=== PATIENT | female | born 1990 | race Caucasian/White ===

== ENCOUNTER → 2016-12-19 | Outpatient (CLI) | payer MEDICAID ==
[~2016-12-19] MED LIST: IRON325 MG PO; LEXAPRO 5MG5 MG PO; MOTRIN 600600 MG/TAB PO; NORCO 325 MG-51 TAB PO; PERCOCET 325 MG1 TA2 PO; PRENATAL VITAMI1 TA5 PO; SPRINTEC 35 MCG1 TAB PO
== END ==
LOC: COL.CARD 14:13
DX: R00.0 Tachycardia, unspecified (principal); R00.2 Palpitations

== ENCOUNTER 2017-02-01 23:46 | Emergency (ER) | payer MEDICAID ==
[~2017-02-01] VITALS: Ht 162.6 cm; Wt 75.0 kg
[~2017-02-01 23:46] MED LIST changes: -NORCO 325 MG-51 TAB PO
[2017-02-01 23:49] VITALS: TEMP 98.1
[2017-02-02] MEDS ORDERED: NORCO 325 MG-51 TAB PO (00:25)
[2017-02-02 01:07] VITALS: BP 117/60; PULSE 96
== END 2017-02-02 01:16 | disposition home or self-care (01) ==
LOC: COL.ER 23:46
DX: S92.355A Nondisplaced fracture of fifth metatarsal bone, left foot, initial encounter for closed fracture (principal); Z87.891 Personal history of nicotine dependence; W08.XXXA Fall from other furniture, initial encounter; Y92.009 Unspecified place in unspecified non-institutional (private) residence as the place of occurrence of the external cause
CPT/HCPCS: J2405; J3010

== ENCOUNTER 2017-03-28 09:41 | Outpatient (RCR) | payer MEDICAID ==
[~2017-03-28 09:41] MED LIST changes: +NORCO 325 MG-51 TAB PO
== END 2017-06-26 ==
LOC: MKS.ESL.PT
DX: S93.402D Sprain of unspecified ligament of left ankle, subsequent encounter (principal)

== ENCOUNTER 2017-05-14 10:22 | Emergency (ER) | payer MEDICAID ==
[~2017-05-14] VITALS: Ht 162.6 cm; Wt 78.6 kg
[2017-05-14 10:31] VITALS: BP 136/72; TEMP 98.6
[2017-05-14 11:29] LABS: PH 7 (5-8); URINE APPEARANCE Clear; URINE BACTERIA Rare /hpf; URINE BILIRUBIN Negative (NEGATIVE); URINE BLOOD Negative (NEGATIVE); URINE COLOR Yellow; URINE GLUCOSE Negative (NEGATIVE); URINE KETONE Negative (NEGATIVE); URINE UROBILINOGEN Negative (NEGATIVE); URINE WBC 0-2 /hpf
[2017-05-14 11:29] LABS: BASO % 0.4 % (0.0-2.0); EOS # 0.1 (0.0-0.7); EOS % 1.8 % (0-4.0); GRAN # 4.1 (1.4-6.5); HEMATOCRIT 40.7 % (37.0-47.0); LYMPH % 29.6 % (20.0-51.0); MEAN CELL VOLUME 93 fl (80.0-100.0); MEAN CORPUSCULAR HEMOGLOBIN 30 pg (27.0-31.0); MEAN CORPUSCULAR HGB CONC 32 g/dl (33.0-37.0); MEAN PLATELET VOLUME 11.3 fl (7.4-10.4); MONO # 0.5 (0.1-0.6); MONO % 7.9 % (1.7-9.3); PLATELET COUNT 216 K/mm3 (130-400); RED BLOOD COUNT 4.38 M/mm3 (4.10-5.30); REDCELL DISTRIBUTION WIDTH-CV 13.1 % (11.5-14.5); WHITE BLOOD COUNT 6.8 K/mm3 (4.8-10.8)
[2017-05-14 11:42] LABS: ADJUSTED CALCIUM 9.6 mg/dL (8.4-10.2); ALBUMIN 4.3 gm/dL (3.5-5.0); BILIRUBIN,TOTAL 0.5 mg/dL (0.0-1.0); C-REACTIVE PROTEIN 2.9 mg/dL (0.0-0.9); CALCIUM 9.8 mg/dL (8.4-10.2); CREATININE, serum 0.59 mg/dL (0.52-1.25); POTASSIUM 4.5 mmol/L (3.4-5.0); TOTAL PROTEIN 7.6 gm/dL (6.4-8.2)
[2017-05-14 13:00] VITALS: PULSE 80
== END 2017-05-14 13:03 | disposition home or self-care (01) ==
LOC: COL.ER 10:22
PROVIDERS: Family Medicine
DX: R53.81 Other malaise (principal); R00.2 Palpitations; F43.20 Adjustment disorder, unspecified

== ENCOUNTER 2018-08-07 14:00 | Outpatient (RCR) | payer MEDICAID | END 2018-10-05 10:21 | disposition home or self-care (01) | LOC: WSOT 14:00 | DX: M65.841 Other synovitis and tenosynovitis, right hand (principal) ==

== ENCOUNTER 2019-01-07 09:28 | Emergency (ER) | payer MEDICAID ==
[~2019-01-07] VITALS: Ht 152.4 cm; Wt 50.2 kg
[2019-01-07 09:32] VITALS: BP 122/74; PULSE 74; TEMP 97.4
== END 2019-01-07 10:57 | disposition left against medical advice (07) ==
LOC: COL.ER 09:28
DX: S43.402A Unspecified sprain of left shoulder joint, initial encounter (principal); X50.0XXA Overexertion from strenuous movement or load, initial encounter; Y92.009 Unspecified place in unspecified non-institutional (private) residence as the place of occurrence of the external cause

== ENCOUNTER 2020-03-23 23:07 | Emergency (ER) | payer MEDICAID ==
[~2020-03-23] VITALS: Ht 162.6 cm; Wt 52.7 kg
[2020-03-23 23:24] VITALS: TEMP 99.8
[2020-03-24] MEDS ORDERED: ULTRAM 50MG TAB50 MG PO (01:16)
[2020-03-24] MEDS ORDERED: CRUTCHES MC (01:18)
[2020-03-24 01:52] VITALS: BP 132/70; PULSE 70
== END 2020-03-24 01:41 | disposition home or self-care (01) ==
LOC: COL.ER 23:07
DX: S92.341A Displaced fracture of fourth metatarsal bone, right foot, initial encounter for closed fracture (principal); W22.09XA Striking against other stationary object, initial encounter; Y92.009 Unspecified place in unspecified non-institutional (private) residence as the place of occurrence of the external cause

== ENCOUNTER → 2020-04-06 | Outpatient (CLI) | payer MEDICAID ==
[~2020-04-06] MED LIST changes: +CRUTCHES MC; +ULTRAM 50MG TAB50 MG PO
== END ==
LOC: MC.RAD 07:00
DX: N63.21 Unspecified lump in the left breast, upper outer quadrant (principal)

== ENCOUNTER → 2020-10-07 | Outpatient (CLI) | payer MEDICAID | LOC: MC.RAD 13:00 | DX: N63.20 Unspecified lump in the left breast, unspecified quadrant (principal) ==

== ENCOUNTER 2021-01-11 14:45 | Emergency (ER) | payer MEDICAID ==
[~2021-01-11] VITALS: Ht 162.6 cm; Wt 53.2 kg
[2021-01-11 14:55] VITALS: BP 131/86; TEMP 98.1
[2021-01-11 15:25] VITALS: PULSE 90
== END 2021-01-11 15:24 | disposition home or self-care (01) ==
LOC: COL.ER 14:45
DX: S60.451A Superficial foreign body of left index finger, initial encounter (principal); Z87.891 Personal history of nicotine dependence; Z88.7 Allergy status to serum and vaccine; W45.8XXA Other foreign body or object entering through skin, initial encounter; Y92.017 Garden or yard in single-family (private) house as the place of occurrence of the external cause; Y99.0 Civilian activity done for income or pay

== ENCOUNTER 2022-01-29 07:06 | Inpatient (IN) | payer MEDICAID ==
[~2022-01-29] VITALS: Ht 162.6 cm; Wt 58.9 kg
[2022-01-29] VITALS (9 sets, daily range): BP systolic 122–143; BP diastolic 77–89; PULSE 56–66; TEMP 97.6–98.4
[2022-01-29 07:32] LABS: BASO % 0.4 % (0.0-2.0); EOS # 0.1 K/mm3 (0.0-0.7); EOS % 1.1 % (0.0-4.0); GRAN # 5.2 K/mm3 (1.4-6.5); GRAN % 71.6 % (42.2-75.2); HEMATOCRIT 42.2 % (37.0-47.0); HEMOGLOBIN 14.1 g/dl (12.5-16.0); LYMPH # 1.4 K/mm3 (1.2-3.4); MEAN CELL VOLUME 102 fl (80.0-100.0); MEAN CORPUSCULAR HEMOGLOBIN 34 pg (27-31); MEAN CORPUSCULAR HGB CONC 33 g/dl (33.0-37.0); MEAN PLATELET VOLUME 10.8 fl (7.4-10.4); MONO # 0.6 K/mm3 (0.1-0.6); MONO % 7.6 % (1.7-9.3); PLATELET COUNT 173 K/mm3 (130-400); RED BLOOD COUNT 4.14 M/mm3 (4.10-5.30); REDCELL DISTRIBUTION WIDTH-CV 12.1 % (11.5-14.5)
[2022-01-29 07:54] LABS: ALBUMIN 4.8 gm/dL (3.5-5.0); BILIRUBIN,TOTAL 1.7 mg/dL (0.2-1.2); CALCIUM 9.6 mg/dL (8.4-10.2); CREATININE, serum 0.7 mg/dL (0.57-1.11); POTASSIUM 3.8 mmol/L (3.5-4.5)
--- NOTE | 2022-01-29 09:53 | NUR ---
PT TO FLOOR FROM ER.
[2022-01-29] MEDS ORDERED: MULTI VITAMINS1 TAB PO (10:03)
[2022-01-29 12:38] LABS: COLLECTION METHOD CLEAN CATCH
[2022-01-29 13:02] LABS: MUCOUS Present (NOT PRESENT); PH 5 (5-8); SQUAMOUS EPITHELIAL 0-2 /hpf (0-10); URINE APPEARANCE Clear (CLEAR/HAZY); URINE BACTERIA Rare /hpf (NONE SEEN); URINE BILIRUBIN Negative (NEGATIVE); URINE BLOOD 2+ (NEGATIVE); URINE COLOR Yellow (YELLOW); URINE GLUCOSE Negative (NEGATIVE); URINE KETONE 1+ (NEGATIVE); URINE LEUKOCYTE ESTERASE Negative (NEGATIVE); URINE NITRATE Negative (NEGATIVE); URINE PROTEIN(semi-quant) Negative (NEGATIVE); URINE RBC 0-2 /hpf (0-2); URINE UROBILINOGEN Negative (NEGATIVE)
--- NOTE | 2022-01-29 18:01 | NUR ---
PT SITTING UP IN BED DRAWING. PT ON ROOM AIR. PT STATES THAT HER PAIN IS A 6 "BUT I HAVE NOT PUSHED THE BUTTON IN A WHILE." ADVISED PT TO PUSH THE BUTTON IF SHE IS HAVING INCREASED PAIN. PT VOICES UNDERSTANDING. PT STATES SHE WOULD LIKE TO HAVE SOME ICE CHIPS. ITEMS WERE GIVEN TO PT. PT STATES NO OTHER NEEDS AT THIS TIME. PT RESPIRATIONS ARE WNL. REGASIFICATION PLANT OPERATOR PUMP AT BEDSIDE. PT IS ALERT. CALL LIGHT IS WITHIN REACH.
--- NOTE | 2022-01-29 20:15 | NUR ---
Initial shift assessment done- states abd pain 5/10,,on morphine LIFE CYCLE ASSESSMENT ANALYST 1mg basal rate/hr and 1 mg every 10 minutes on demand. States is effective for pain, States having some nausea- will give Zofran. IV fluids of NS at 150cc/hr to L/FA.
--- NOTE | 2022-01-29 21:00 | NUR ---
States having some itching- will give benadryl as ordered.
[2022-01-30 00:46] VITALS: BP 130/79; PULSE 63; TEMP 98.3
[2022-01-30 04:36] VITALS: BP 126/83; PULSE 81; TEMP 98.3
--- NOTE | 2022-01-30 05:59 | NUR ---
Slept fair during the night- states pain is under better control today-- continues with INCREMENT MANAGER Morphine-VSS, IV fluids of NS at 150cc/hr
[2022-01-30 07:06] LABS: BASO % 0.3 % (0.0-2.0); EOS # 0.2 K/mm3 (0.0-0.7); EOS % 2.6 % (0.0-4.0); GRAN # 5.3 K/mm3 (1.4-6.5); GRAN % 84.6 % (42.2-75.2); HEMATOCRIT 38.7 % (37.0-47.0); HEMOGLOBIN 12.7 g/dl (12.5-16.0); LYMPH # 0.4 K/mm3 (1.2-3.4); LYMPH % 6.1 % (20.0-51.0); MEAN CELL VOLUME 106 fl (80.0-100.0); MEAN CORPUSCULAR HEMOGLOBIN 35 pg (27-31); MEAN CORPUSCULAR HGB CONC 33 g/dl (33.0-37.0); MEAN PLATELET VOLUME 11.7 fl (7.4-10.4); MONO # 0.4 K/mm3 (0.1-0.6); MONO % 6.2 % (1.7-9.3); PLATELET COUNT 125 K/mm3 (130-400); RED BLOOD COUNT 3.66 M/mm3 (4.10-5.30); REDCELL DISTRIBUTION WIDTH-CV 12.1 % (11.5-14.5)
[2022-01-30 07:12] LABS: ALBUMIN 3.9 gm/dL (3.5-5.0); BILIRUBIN,TOTAL 1.9 mg/dL (0.2-1.2); CALCIUM 8.5 mg/dL (8.4-10.2); CREATININE, serum 0.61 mg/dL (0.57-1.11); POTASSIUM 3.7 mmol/L (3.5-4.5); TOTAL PROTEIN 6.3 gm/dL (6.2-8.1)
[2022-01-30 07:15] LABS: INR 1.1 (0.8-3.0); PROTHROMBIN TIME 13.1 SECONDS (9.7-12.8)
[2022-01-30 08:00] VITALS: BP 129/76; PULSE 75
--- NOTE | 2022-01-30 08:10 | NUR ---
PT LAYING SUPINE IN BED ON ROOM AIR. PT STATES THAT HER PAIN IS "THE BEST IT HAS BEEN SINCE SHE IS HAS BEEN HERE." STILL RATING IT "ABOUT A 4" PT STATES THAT SHE IS CONCERNED ABOUT HER BMs. "I HAVE NOT HAD ONE IN A FEW DAYS" I INFORMED PT THAT A STOOL SOFTENER WAS ORDER FOR HER AT BEDTIME AND IT WAS NOT GIVEN TO HER LAST NIGHT BECAUSE SHE WAS VOMITING. BUT IT WILL BE GIVEN TO HER AGAIN TONIGHT AND TO CERTAINLY MENTION IT TO THE DR IF SHE WOULD LIKE TO HAVE SOMETHING ELSE WELL. PT VOICED UNDERSTANDING. PT STATES THAT SHE WOUDL ALSO LIKE SOMETHING TO EAT. I INFORMED HER THAT WOULD BE SOMETHING ELSE THAT WE WOULD TALK TO THE DR ABOUT WHEN THEY CAME IN. PT STATES THAT SHE WOULD LIKE TO HAVE SOEM ICE CHIPS. ICE CHIPS WERE GIVEN PER REQUEST. PT STATES NO OTHER NEEDS/COCNERNS. PRIMARY CARE PROVIDER PUMP IS AT BEDSIDE. NS AT 150ML IS INFUSING. IV SITE IS CLEAN,DRY AND INTACT. CALL LIGHT IS WITHIN REACH.
[2022-01-30 08:28] VITALS: BP 129/76; PULSE 75; TEMP 98.4
[2022-01-30 12:00] VITALS: BP 136/90; PULSE 83; PULSE 86; TEMP 98.1
--- NOTE | 2022-01-30 13:21 | NUR ---
Sw met with the pt to complete intake. Pt is lives at home with common law , Dimitri @ [phone] and they have 4 children together. The pt reports she is independent on all ADLs and does not use any DME. Pt reports no DPOA_HC and is not interested at this time. PCP is Mary Lazo and gets medications from [facility]. No other needs stated at this time. Sw to await further recommendations and follow up as needed. DC: Home
--- NOTE | 2022-01-30 14:45 | NUR ---
FLOOR BROKER PUMP WAS DISCONNECTED. PT STATES THAT HER PAIN IS "MAYBE A 2" PT WAS ABLE TO HOLD DOWN WATER AND JELLO. NO N/V. PT STATES "THIS IS THE BEST THAT I HAVE FELT IN DAYS, I AM READY TO GO HOME." WAS CALLED AND INFORMED AND STATES THE WILL WORK ON DC PAPER WORK. PT VOICES UNDERSTANDING. STATES NO OTHER NEEDS AT THIS TIME. CALL LIGHT IS WITHIN REACH.
== END 2022-01-30 15:40 | disposition home or self-care (01) | DRG 440 ==
LOC: COL.ER 07:06 → MEDICAL 08:53
PROVIDERS: Emergency Medicine; Physician Assistant; ADMIT Internal Medicine
DX: K85.20 Alcohol induced acute pancreatitis without necrosis or infection (principal); F41.9 Anxiety disorder, unspecified; F32.A Depression, unspecified; K76.0 Fatty (change of) liver, not elsewhere classified; F10.10 Alcohol abuse, uncomplicated; Y90.3 Blood alcohol level of 60-79 mg/100 ml; Z87.891 Personal history of nicotine dependence
CPT/HCPCS: 99223-AI; 99239; J1170; J1200; J2270; J2405; J2765; J7030

== ENCOUNTER 2022-11-27 10:35 | Inpatient (IN) | payer MEDICAID ==
[~2022-11-27] VITALS: Ht 162.6 cm; Wt 62.2 kg
[~2022-11-27 10:35] MED LIST changes: +MULTI VITAMINS1 TAB PO
[2022-11-27 11:01] LABS: BASO # 0.1 K/mm3 (0.0-0.2); BASO % 0.6 % (0.0-2.0); EOS # 0.1 K/mm3 (0.0-0.7); EOS % 1.2 % (0.0-4.0); GRAN # 3.9 K/mm3 (1.4-6.5); GRAN % 38.3 % (42.2-75.2); HEMATOCRIT 42.9 % (37.0-47.0); HEMOGLOBIN 14.9 g/dl (12.5-16.0); LYMPH # 4.6 K/mm3 (1.2-3.4); LYMPH % 45.8 % (20.0-51.0); MEAN CELL VOLUME 101 fl (80.0-100.0); MEAN CORPUSCULAR HEMOGLOBIN 35 pg (27-31); MEAN CORPUSCULAR HGB CONC 35 g/dl (33.0-37.0); MEAN PLATELET VOLUME 10.3 fl (7.4-10.4); MONO # 1.4 K/mm3 (0.1-0.6); MONO % 13.6 % (1.7-9.3); PLATELET COUNT 214 K/mm3 (130-400); RED BLOOD COUNT 4.24 M/mm3 (4.10-5.30); REDCELL DISTRIBUTION WIDTH-CV 11.9 % (11.5-14.5)
[2022-11-27 11:29] LABS: ALANINE AMINOTRANSFERASE 166 U/L (0-55); ALBUMIN 4.4 gm/dL (3.5-5.0); ALKALINE PHOSPHATASE 48 U/L (40-150); ANION GAP 17 mmol/L (7-16); AST,SGOT 344 U/L (5-34); BILIRUBIN,TOTAL 0.9 mg/dL (0.2-1.2); BLOOD UREA NITROGEN 9 mg/dL (7-19); CALCIUM 9.8 mg/dL (8.4-10.2); CARBON DIOXIDE 24 mmol/L (22-29); CHLORIDE 99 mmol/L (98-107); CREATININE, serum 0.78 mg/dL (0.57-1.11); GLUCOSE 106 mg/dL (70-99); POTASSIUM 3.5 mmol/L (3.5-4.5); SODIUM 140 mmol/L (136-145); TOTAL PROTEIN 7.8 gm/dL (6.2-8.1)
[2022-11-27 11:58] LABS: LIPASE > 9600 U/L (8-78)
[2022-11-27 13:28] VITALS: BP 140/91; PULSE 71; TEMP 98.4
[2022-11-27] MEDS ORDERED: PREDNISONE 5MG5 MG PO (13:40)
--- NOTE | 2022-11-27 14:38 | NUR ---
PT ADMITTED TO MEDICAL UNIT. ADMISSION INTAKE AND ASSESSMENT COMPLETED. PT ORIENTED TO ROOM, CALL LIGHT WITHIN REACH. MED REC UPDATED. PT REPORTS 10/10 PAIN TO MID ABDOMEN, PRN MEDICATION GIVEN PER eMAR. IVF STARTED. WILL CONTINUE TO MONITOR.
[2022-11-27 14:55] LABS: COLLECTION METHOD CLEAN CATCH
[2022-11-27 15:09] LABS: PH 6.5 (5.0-8.5); URINE APPEARANCE Cloudy (CLEAR/HAZY); URINE BLOOD TRACE-INTACT (NEGATIVE); URINE COLOR Yellow (YELLOW); URINE GLUCOSE Negative (NEGATIVE); URINE KETONE 1+ (NEGATIVE); URINE NITRATE Positive (NEGATIVE); URINE PROTEIN(semi-quant) 1+ (NEGATIVE); URINE UROBILINOGEN 0.2 E.U/dL (0.2-1.0)
[2022-11-27 15:11] LABS: MUCOUS Present (NOT PRESENT); URINE BACTERIA Occasional /hpf (NONE SEEN)
[2022-11-27 15:50] VITALS: BP 142/86; PULSE 67; TEMP 98.1
[2022-11-27 20:04] VITALS: BP 150/89; PULSE 60; TEMP 98.5
--- NOTE | 2022-11-27 21:38 | NUR ---
Patient assesse around 2044. Complained of level 7 pain to abdomen. Given PRN Dilaudid as requeted. Patient complianed of nausea and had approximatly 100 mls of emesis. Called NATHAN Ontiveros, and given PRN Zofran. IV fluids continue per orders. Asked patient is she had ever gone through alcohol detox while in hospital, and stated that last time she was in the hospital she started having hallucinations at 12 hours without a drink. Called NATHAN Ontiveros, and new order received to place on alcohol detox protocol. Patient updated on plan of care, and voiced understanding. Voices no further questions, needs, or concerns at this time. In bed with call light within reach.
[2022-11-27 21:42] LABS: TRICYCLIC ANTIDEPRESS URINE NEGATIVE
[2022-11-27 21:52] LABS: PROTHROMBIN TIME 11.5 SECONDS (9.7-12.8)
[2022-11-27 21:55] LABS: PARTIAL THROMBOPLASTIN TIME 26.5 SECONDS (26.0-37.0)
[2022-11-27 22:19] VITALS: BP 149/84; PULSE 59; TEMP 97.5
--- NOTE | 2022-11-27 22:27 | NUR ---
NATHAN Ontiveros notified of labs, potassium 3.5, Magnesium 1.2. Order to place on potassium protocol, and give 2 grams Magnesium.
[2022-11-28] VITALS (12 sets, daily range): BP systolic 127–159; BP diastolic 75–109; PULSE 67–120; TEMP 97.6–99.4
--- NOTE | 2022-11-28 06:15 | NUR ---
Patient given PRN Dilaudid every two hours during the night as requested for pain to abdomen. Patient was scoring 3 on detox protocol at beginning of shift, and has increased to a 7 this shift and given PRN Ativan per protocol. Patient's HR and BP are elevated, has tremors, and nausea. High fall risk precautions in place, bed alarm on. Call light within reach.
[2022-11-28 06:35] LABS: BASO # 0.1 K/mm3 (0.0-0.2); BASO % 0.7 % (0.0-2.0); GRAN # 13.3 K/mm3 (1.4-6.5); GRAN % 89.4 % (42.2-75.2); HEMATOCRIT 49.6 % (37.0-47.0); LYMPH # 0.4 K/mm3 (1.2-3.4); LYMPH % 2.6 % (20.0-51.0); MEAN CELL VOLUME 100 fl (80.0-100.0); MEAN CORPUSCULAR HEMOGLOBIN 35 pg (27-31); MEAN CORPUSCULAR HGB CONC 35 g/dl (33.0-37.0); MEAN PLATELET VOLUME 10.5 fl (7.4-10.4); PLATELET COUNT 155 K/mm3 (130-400); RED BLOOD COUNT 4.96 M/mm3 (4.10-5.30); REDCELL DISTRIBUTION WIDTH-CV 11.9 % (11.5-14.5)
[2022-11-28 06:39] LABS: HEMOGLOBIN 17.4 g/dl (12.5-16.0)
[2022-11-28 06:47] LABS: CALCIUM 8.5 mg/dL (8.4-10.2); CREATININE, serum 0.68 mg/dL (0.57-1.11); POTASSIUM 4.7 mmol/L (3.5-4.5)
[2022-11-28 07:21] LABS: BAND 35 % (0-10); LYMPHOCYTE 2 % (20.0-51.0); NEUTROPHILS 56 % (42.0-75.2); PLATELET ESTIMATE NORMAL (NORMAL)
--- NOTE | 2022-11-28 13:31 | NUR ---
Initial visit: Grain Operator stopped by room on rounds. Pt was resting and content. Pt has no needs right now. Grain Operator will follow up as needed.
--- NOTE | 2022-11-28 22:32 | NUR ---
Patient assessed around 2100. Complained of pain to abdomen, and requesting pain medication. Dilaudid had been D/C'd on day shift, and no pain medications were put in. Called NATHAN Ontiveros and new order for Roxicodone received. Given per orders. Patient scored 7 on detox protocol. Given PRN Ativan, PO per protocol. Patient had requested telesitter to be removed from room. Explained that for safety it was going to stay in the room tonight, and voiced understanding. Voices no further questions, needs, or concerns at this time. In bed with call light within reach.
[2022-11-29] VITALS (8 sets, daily range): BP systolic 111–136; BP diastolic 70–89; PULSE 96–136; TEMP 98.4–99.3
--- NOTE | 2022-11-29 05:31 | NUR ---
Patient scoring 5-8 on detox protocol. Given PO Ativan. Has denied pain and discomfort since recieving Roxicodone last night. Has already gotten dressed for the day, stating she is ready and just playing the waiting game on when the phsysician will be in to discharge her. Voices no questions, needs, or concerns at this time. In recliner with call light within reach.
[2022-11-29 07:14] LABS: ALBUMIN 3.6 gm/dL (3.5-5.0); BILIRUBIN,TOTAL 1.3 mg/dL (0.2-1.2); MAGNESIUM 1.9 mg/dL (1.6-2.6); POTASSIUM 3.5 mmol/L (3.5-4.5); TOTAL PROTEIN 6.4 gm/dL (6.2-8.1)
[2022-11-29 07:49] LABS: BILIRUBIN,DIRECT 0.6 mg/dL (0.0-0.5)
--- NOTE | 2022-11-29 09:12 | NUR ---
Patient is sitting up in bed, alert and oriented x 4, tachycardic, some tremors present. Refuses eating. States she want sto go home today to check on her children. Assessment completed, meds provided. No other needs at this time. Call light within reach.
--- NOTE | 2022-11-29 10:02 | NUR ---
Initial visit; Patient thanked Stucco Mason for stopping and states she and her [id number] prayed most of the night for her to get better. Jacy is feeling anxiety being in the hospital. Stucco Mason attempted to let her know how normal that feeling is and assured her she is being well cared for. Stucco Mason wished Jacy God's blessings.
[2022-11-29 13:18] LABS: HEMATOCRIT 46.3 % (37.0-47.0); HEMOGLOBIN 16.3 g/dl (12.5-16.0); MEAN CELL VOLUME 100 fl (80.0-100.0); MEAN CORPUSCULAR HEMOGLOBIN 35 pg (27-31); MEAN CORPUSCULAR HGB CONC 35 g/dl (33.0-37.0); MEAN PLATELET VOLUME 11.3 fl (7.4-10.4); PLATELET COUNT 128 K/mm3 (130-400); RED BLOOD COUNT 4.62 M/mm3 (4.10-5.30); REDCELL DISTRIBUTION WIDTH-CV 11.8 % (11.5-14.5)
[2022-11-29 13:33] LABS: CALCIUM 9.3 mg/dL (8.4-10.2); CREATININE, serum 0.57 mg/dL (0.57-1.11); POTASSIUM 4.2 mmol/L (3.5-4.5)
[2022-11-29 14:22] LABS: BAND 3 % (0-10); LYMPHOCYTE 1 % (20.0-51.0); NEUTROPHILS 93 % (42.0-75.2)
[2022-11-29 14:23] LABS: PLATELET ESTIMATE NORMAL (NORMAL)
--- NOTE | 2022-11-29 15:38 | NUR ---
propeller driven airplane mechanic met with PAtient and her significant other, Dimitri at bedside to conduct Care Managment Assessment and discuss discharge planning. Patient lives in [place], [place] with Dimitri and their 4 children. PAtient is established with Dr. Farrell at [facility] and recieved [facility] for insurance. Patient was provided Advanced Directives information as she requested Dimitri be her agent. Dimitri repoprts that Patient was independent with ADLs/IADLs prior to admission. PAtient intends on discharging home when medically cleared.
[2022-11-30] VITALS (12 sets, daily range): BP systolic 99–129; BP diastolic 56–84; PULSE 95–116; TEMP 98–99.8
--- NOTE | 2022-11-30 00:04 | NUR ---
Patient assessed around 2119. Denies having pain and discomfort. In bed with call light within reach. Bed alarm on. Very unsteady with ambulation.
--- NOTE | 2022-11-30 06:00 | NUR ---
Patient not scoring enough on detox protocol to get PRN Ativan. Voices no questions, needs, or concerns at this time. In bed with call light within reach.
[2022-11-30 07:00] LABS: MEAN CELL VOLUME 101 fl (80.0-100.0); MEAN CORPUSCULAR HEMOGLOBIN 35 pg (27-31); MEAN CORPUSCULAR HGB CONC 35 g/dl (33.0-37.0); MEAN PLATELET VOLUME 11.3 fl (7.4-10.4); PLATELET COUNT 139 K/mm3 (130-400); RED BLOOD COUNT 4.56 M/mm3 (4.10-5.30); REDCELL DISTRIBUTION WIDTH-CV 11.7 % (11.5-14.5)
[2022-11-30 07:16] LABS: CALCIUM 9.1 mg/dL (8.4-10.2); CREATININE, serum 0.57 mg/dL (0.57-1.11); POTASSIUM 3.7 mmol/L (3.5-4.5)
[2022-11-30 09:56] LABS: BAND 5 % (0-10); LYMPHOCYTE 7 % (20.0-51.0); NEUTROPHILS 88 % (42.0-75.2); PLATELET ESTIMATE NORMAL (NORMAL)
--- NOTE | 2022-11-30 11:05 | NUR ---
Continuous Process Machine Operator and Nurse met with PAtient at bedside to dennis signing og DPOA. completed DPOA and placed in chart. Copies were provided to PAtient.
[2022-12-01] VITALS (11 sets, daily range): BP systolic 112–134; BP diastolic 59–88; PULSE 85–118; TEMP 97.5–99.2
[2022-12-01 07:14] LABS: BASO # 0.1 K/mm3 (0.0-0.2); BASO % 0.6 % (0.0-2.0); EOS # 0.1 K/mm3 (0.0-0.7); GRAN # 11.6 K/mm3 (1.4-6.5); GRAN % 79.7 % (42.2-75.2); HEMATOCRIT 39.5 % (37.0-47.0); HEMOGLOBIN 14.2 g/dl (12.5-16.0); LYMPH # 1.2 K/mm3 (1.2-3.4); LYMPH % 8.3 % (20.0-51.0); MEAN CELL VOLUME 98 fl (80.0-100.0); MEAN CORPUSCULAR HEMOGLOBIN 35 pg (27-31); MEAN CORPUSCULAR HGB CONC 36 g/dl (33.0-37.0); MEAN PLATELET VOLUME 10.2 fl (7.4-10.4); MONO # 1.4 K/mm3 (0.1-0.6); MONO % 9.5 % (1.7-9.3); PLATELET COUNT 151 K/mm3 (130-400); RED BLOOD COUNT 4.04 M/mm3 (4.10-5.30); REDCELL DISTRIBUTION WIDTH-CV 11.4 % (11.5-14.5)
[2022-12-01 07:27] LABS: CALCIUM 8.8 mg/dL (8.4-10.2); CHOLESTEROL RISK RATIO 3.6; CREATININE, serum 0.65 mg/dL (0.57-1.11); POTASSIUM 3.7 mmol/L (3.5-4.5)
--- NOTE | 2022-12-01 21:46 | NUR ---
Patient assessed around 1999. Stated she started her menstrual cycle and was having cramps. Called BERT Graham. New order for Ultram received and given per orders. Patient not scoring on detox protocol at this time. Voices no questions, needs, or concerns at this time. In bed with call light within reach.
[2022-12-02 03:53] VITALS: BP 140/88; PULSE 92; TEMP 98.6
[2022-12-02 06:02] VITALS: BP 127/75; PULSE 98; TEMP 98.5
[2022-12-02 06:07] LABS: HEMOGLOBIN 13.5 g/dl (12.5-16.0); MEAN CELL VOLUME 102 fl (80.0-100.0); MEAN CORPUSCULAR HEMOGLOBIN 35 pg (27-31); MEAN CORPUSCULAR HGB CONC 34 g/dl (33.0-37.0); MEAN PLATELET VOLUME 10.8 fl (7.4-10.4); PLATELET COUNT 210 K/mm3 (130-400); RED BLOOD COUNT 3.91 M/mm3 (4.10-5.30); REDCELL DISTRIBUTION WIDTH-CV 11.7 % (11.5-14.5)
[2022-12-02 06:18] LABS: CREATININE, serum 0.6 mg/dL (0.57-1.11); POTASSIUM 3.8 mmol/L (3.5-4.5)
--- NOTE | 2022-12-02 06:38 | NUR ---
Patient has not scored more than a 2 on detox protocol this shift. Denies having pain and discomfort. Currently in shower. Voices no questions, needs, or concerns at this time.
[2022-12-02 07:02] LABS: BAND 18 % (0-10); EOSINOPHIL 2 % (0-4); LYMPHOCYTE 13 % (20.0-51.0); NEUTROPHILS 57 % (42.0-75.2); NUCLEATED RED BLOOD CELL 1 (0-6); PLATELET ESTIMATE NORMAL (NORMAL)
[2022-12-02 08:00] VITALS: BP 112/79; PULSE 91
[2022-12-02] MEDS ORDERED: FOLIC ACID 11 MG/TA1 PO (10:16)
[2022-12-02] MEDS ORDERED: FLAGYL500 MG PO ×2 (10:18→11:39)
[2022-12-02] MEDS ORDERED: CIPRO 500MG TA500 MG PO ×2 (10:19→11:39)
[2022-12-02] MEDS ORDERED: PROTONIX 40MG T40 MG PO (10:20)
[2022-12-02 10:43] VITALS: BP 114/78; PULSE 87; TEMP 98
[2022-12-02 11:48] VITALS: BP 115/67; PULSE 66; TEMP 98.2
--- NOTE | 2022-12-02 16:03 | NUR ---
The patient's RN notified LUZMARIA that the patient shared with her that her also abuses alcohol and they home school their four children. Upon further investigation, the patient's toxicology was also positive for opiates and cannabinoids. LUZMARIA made a CPS report. Intake ID#[id number].
== END 2022-12-02 12:23 | disposition home or self-care (01) | DRG 439 ==
LOC: COL.ER 10:35 → MEDICAL 12:17
PROVIDERS: Internal Medicine; Physician Assistant; ADMIT Student in an Organized Health Care Education/Training Program
DX: K85.21 Alcohol induced acute pancreatitis with uninfected necrosis (principal); E87.1 Hypo-osmolality and hyponatremia; F10.939 Alcohol use, unspecified with withdrawal, unspecified; F41.9 Anxiety disorder, unspecified; F32.A Depression, unspecified; E83.42 Hypomagnesemia; F11.10 Opioid abuse, uncomplicated; F12.10 Cannabis abuse, uncomplicated; D72.829 Elevated white blood cell count, unspecified; K70.0 Alcoholic fatty liver; K29.70 Gastritis, unspecified, without bleeding; K29.80 Duodenitis without bleeding; K52.9 Noninfective gastroenteritis and colitis, unspecified; Z98.51 Tubal ligation status; Z90.49 Acquired absence of other specified parts of digestive tract; Z88.7 Allergy status to serum and vaccine
CPT/HCPCS: J1170; J1650; J1790; J2060; J2185; J2270; J2405; J2543; J3475; J3480; J7030; Q9967

== ENCOUNTER 2022-12-12 13:23 | Emergency (ER) | payer MEDICAID ==
[~2022-12-12] VITALS: Ht 162.6 cm; Wt 63.6 kg
[~2022-12-12 13:23] MED LIST changes: +CIPRO 500MG TA500 MG PO; +FLAGYL500 MG PO; +FOLIC ACID 11 MG/TA1 PO; +PREDNISONE 5MG5 MG PO; +PROTONIX 40MG T40 MG PO
[2022-12-12 13:38] VITALS: TEMP 98.4
[2022-12-12 15:59] LABS: ALANINE AMINOTRANSFERASE 23 U/L (0-55); ALBUMIN 3.6 gm/dL (3.5-5.0); ALKALINE PHOSPHATASE 35 U/L (40-150); ANION GAP 12 mmol/L (7-16); AST,SGOT 26 U/L (5-34); BILIRUBIN,TOTAL 0.3 mg/dL (0.2-1.2); BLOOD UREA NITROGEN 9 mg/dL (7-19); C-REACTIVE PROTEIN 0.31 mg/dL (0.00-0.50); CALCIUM 9.4 mg/dL (8.4-10.2); CARBON DIOXIDE 25 mmol/L (22-29); CHLORIDE 104 mmol/L (98-107); CREATININE, serum 0.63 mg/dL (0.57-1.11); GLUCOSE 103 mg/dL (70-99); LIPASE 317 U/L (8-78); POTASSIUM 3.4 mmol/L (3.5-4.5); SODIUM 141 mmol/L (136-145); TOTAL PROTEIN 7.4 gm/dL (6.2-8.1)
[2022-12-12 16:01] LABS: ALCOHOL(ethanol),MEDICAL < 10 mg/dL (0-10)
[2022-12-12 16:02] LABS: BASO # 0.1 K/mm3 (0.0-0.2); BASO % 0.5 % (0.0-2.0); EOS # 0.1 K/mm3 (0.0-0.7); EOS % 0.4 % (0.0-4.0); GRAN # 16.8 K/mm3 (1.4-6.5); GRAN % 85.9 % (42.2-75.2); HEMATOCRIT 41.3 % (37.0-47.0); HEMOGLOBIN 13.9 g/dl (12.5-16.0); LYMPH # 1.4 K/mm3 (1.2-3.4); LYMPH % 7.3 % (20.0-51.0); MEAN CELL VOLUME 103 fl (80.0-100.0); MEAN CORPUSCULAR HEMOGLOBIN 35 pg (27-31); MEAN CORPUSCULAR HGB CONC 34 g/dl (33.0-37.0); MEAN PLATELET VOLUME 11.3 fl (7.4-10.4); MONO % 5.3 % (1.7-9.3); PLATELET COUNT 454 K/mm3 (130-400); REDCELL DISTRIBUTION WIDTH-CV 11.9 % (11.5-14.5)
[2022-12-12 18:50] VITALS: BP 122/74; PULSE 73
[2022-12-12] MEDS ORDERED: ZOFRAN ODT4 MG PO (19:09)
[2022-12-12] MEDS ORDERED: NORCO 325 MG-51 TAB PO (19:09)
== END 2022-12-12 20:38 | disposition home or self-care (01) ==
LOC: COL.ER 13:23
PROVIDERS: Emergency Medicine
DX: K86.3 Pseudocyst of pancreas (principal); D72.829 Elevated white blood cell count, unspecified; R74.8 Abnormal levels of other serum enzymes; Z28.310 Unvaccinated for COVID-19; Z90.49 Acquired absence of other specified parts of digestive tract
CPT/HCPCS: J1170; J2405; J7030; Q9967